=== PATIENT | male | born 1935 | race African-American/Black ===

== ENCOUNTER 2021-04-01 01:53 | Inpatient (IN) | payer MEDICARE, BC ==
[2021-04-01 02:51] LABS: Base Excess (BEa) 3.5 mEq/L (-2.0 to +3.0); CO2 Tension 36.6 mmHg (35.0-45.0); Calcium, Ionized (arterial) 1.14 mmol/L (1.12-1.30); Carboxyhemoglobin (COHb) 0.6 gm% (0.0-3.0); Hemoglobin (Hb) 11.7 g/dL (14.0-18.0); Potassium - ABG Lab 2.99 mmol/L (3.70-5.30); pH, Arterial 7.49 (7.35-7.45)
[2021-04-01 03:00] LABS: Puncture Site LRA
[2021-04-01] MEDS ORDERED: Mannitol 12.5 GM/50 ML IV PRN (04:43)
[2021-04-01] MEDS ORDERED: Ondansetron PF 4 MG/2 ML Vial IVP PRN (04:43)
[2021-04-01] MEDS ORDERED: Ventilator Sedation Protocol 1 EACH FS SCH (04:45)
[2021-04-01] MEDS ORDERED: manNITOL 20% 250 ML IVPB PRN (04:55)
[2021-04-01] MEDS ORDERED: Morphine 2 MG/ML VIAL SLOW IVP PRN (05:00)
[2021-04-01] MEDS ORDERED: Fentanyl CADD 100 ML IV SCH (05:00)
[2021-04-01] MEDS ORDERED: Fentanyl BOLUS 250 ML IVPB PRN (05:00)
[2021-04-01] MEDS ORDERED: Propofol 1,000 MG/100 ML VIAL IV PRN (05:00)
[2021-04-01] MEDS ORDERED: Propofol BOLUS 1,000 MG/100 ML VIAL IV PRN (05:00)
[2021-04-01] MEDS ORDERED: DISCONTINUE PREVIOUS NARCOTIC PAIN MEDICATIONS AND BENZODIAZEPINES FS SCH (05:00)
[2021-04-01] MEDS ORDERED: Lorazepam 2 MG/ML VIAL SLOW IVP PRN (05:00)
[2021-04-01] MEDS: niCARdipine 25 MG in Sodium Chloride 0.9% 250 ML 240 ML IVPB PRN (06:12)
[2021-04-01 07:24] LABS: Anion Gap 20 mmol/L (10-20); BUN (Urea Nitrogen) 18 mg/dL (8.4-25.7); Calc. Creatinine Clearance 9 mL/min (70-130); Calcium 9.6 mg/dL (7.8-10.44); Carbon Dioxide 23 mmol/L (23-31); Chloride 99 mmol/L (98-107); Glucose 135 mg/dL (83-110); Potassium 3.4 mmol/L (3.5-5.1); Sodium 139 mmol/L (136-145)
[2021-04-01 07:37] LABS: #Eosinphils 0.1 thou/uL (0.0-0.7); #Lymphocytes 0.9 thou/uL (1.20-3.40); #Monocytes 1.1 thou/uL (0.11-0.59); #Neutrophils 6.4 thou/uL (1.40-6.50); %Basophils 0.5 % (0.0-1.0); %Eosinophils 0.7 % (0.0-10.0); %Lymphocytes 10.1 % (21.0-51.0); %Monocytes 12.9 % (0.0-10.0); %Neutrophils 75.8 % (42.0-75.0); Anisocytosis SLIGHT = 6-15 cells (100X) (0-5/hpf); Elliptocytes SLIGHT = 2-5 cells (100X) (0-1/hpf); Hemoglobin 11.3 g/dL (14.0-18.0); MDiff Complete? YES; Macrocytosis SLIGHT = 6-15 cells (100X) (0-5/hpf); Mean Corpuscular HGB CONC 33.4 g/dL (32.0-36.0); Mean Corpuscular Hemoglobin 34.5 pg (27.0-31.0); Mean Platelet Volume 9.3 fL (7.4-10.4); Platelet Count 53 thou/uL (130-400); Platelet Morphology Comment Appears Decreased; Poikilocytosis SLIGHT = 6-15 cells (100X) (0-5/hpf); RBC Distribution Width 14.2 % (11.5-14.5); Red Blood Cell (RBC) Count 3.28 mill/uL (4.70-6.10); White Blood Cell (WBC) Count 8.5 thou/uL (4.8-10.8)
[2021-04-01 07:46] LABS: INR-International Normal Ratio 1.1; PTT 34.1 sec (22.9-36.1); Prothrombin Time 14.7 sec (12.0-14.7)
[2021-04-01] MEDS ORDERED: Famotidine/PF 20 mg/2ml Vial SLOW IVP SCH (09:00)
[2021-04-01] MEDS: Dextrose 5% in Water 1,000 ML IV SCH (10:46)
[2021-04-02] MEDS: niCARdipine 25 MG in Sodium Chloride 0.9% 250 ML 240 ML IVPB PRN (00:55)
[2021-04-02 03:49] LABS: #Lymphocytes 0.9 thou/uL (1.20-3.40); #Monocytes 1.2 thou/uL (0.11-0.59); #Neutrophils 9.5 thou/uL (1.40-6.50); %Basophils 0.1 % (0.0-1.0); %Lymphocytes 7.7 % (21.0-51.0); %Monocytes 10.5 % (0.0-10.0); %Neutrophils 81.7 % (42.0-75.0); Hemoglobin 10.5 g/dL (14.0-18.0); Mean Corpuscular HGB CONC 33.1 g/dL (32.0-36.0); Mean Corpuscular Hemoglobin 33.9 pg (27.0-31.0); Mean Platelet Volume 8.3 fL (7.4-10.4); Platelet Count 89 thou/uL (130-400); RBC Distribution Width 14.1 % (11.5-14.5); Red Blood Cell (RBC) Count 3.11 mill/uL (4.70-6.10); White Blood Cell (WBC) Count 11.6 thou/uL (4.8-10.8)
[2021-04-02 04:12] LABS: Anion Gap 15 mmol/L (10-20); BUN (Urea Nitrogen) 29 mg/dL (8.4-25.7); Calc. Creatinine Clearance 6 mL/min (70-130); Calcium 9.9 mg/dL (7.8-10.44); Carbon Dioxide 28 mmol/L (23-31); Chloride 100 mmol/L (98-107); Glucose 120 mg/dL (83-110); Potassium 3.9 mmol/L (3.5-5.1); Sodium 139 mmol/L (136-145)
[2021-04-02] MEDS: Famotidine/PF 20 mg/2ml Vial SLOW IVP SCH (10:10)
[2021-04-02] MEDS: Dextrose 5% in Water 1,000 ML IV SCH (10:10)
[2021-04-02] MEDS ORDERED: Pancrelipase DR 12,000 1 CAP FS PRN (11:15)
[2021-04-02] MEDS ORDERED: Sodium Bicarbonate Tab 325 MG TAB PER TUBE PRN (11:15)
[2021-04-03] MEDS: Dextrose 5% in Water 1,000 ML IV SCH ×2 (10:57→18:32)
[2021-04-03] MEDS: Famotidine/PF 20 mg/2ml Vial SLOW IVP SCH (11:01)
[2021-04-04] MEDS: Famotidine/PF 20 mg/2ml Vial SLOW IVP SCH (09:00)
[2021-04-04] MEDS: Dextrose 5% in Water 1,000 ML IV SCH (13:00)
[2021-04-05 05:16] VITALS: BMI 17.6
[2021-04-05] MEDS: Famotidine/PF 20 mg/2ml Vial SLOW IVP SCH (09:12)
[2021-04-05] MEDS: Dextrose 5% in Water 1,000 ML IV SCH (09:12)
[2021-04-05] MEDS ORDERED: Morphine 4 MG/ML VIAL SLOW IVP PRN ×2 (10:48)
[2021-04-05] MEDS ORDERED: Hyoscyamine Sulfate SL 0.125 mg Tablet SL PRN (10:49)
[2021-04-05] MEDS ORDERED: Lorazepam 2 MG/ML VIAL SLOW IVP PRN ×2 (10:49)
[2021-04-05] MEDS ORDERED: Scopolamine 1.5 mg/72 hour Patch TOP PRN (18:46)
[2021-04-06 08:55] VITALS: BP 139/67; TEMP 98.1
== END 2021-04-06 15:17 | disposition hospice, inpatient (51) | DRG 64 ==
LOC: CCU 01:53 → ONC 04-05 14:44
PROVIDERS: ADMIT Internal Medicine; ATTEND Emergency Medicine
PROC: 5A1955Z Respiratory Ventilation, Greater than 96 Consecutive Hours (ICD-10-PCS; principal; 2021-04-01)
DX: I61.5 Nontraumatic intracerebral hemorrhage, intraventricular (principal); J96.01 Acute respiratory failure with hypoxia; N18.6 End stage renal disease; G93.5 Compression of brain; G93.6 Cerebral edema; I12.0 Hypertensive chronic kidney disease with stage 5 chronic kidney disease or end stage renal disease; G91.1 Obstructive hydrocephalus; Z51.5 Encounter for palliative care; Z66 Do not resuscitate; I48.0 Paroxysmal atrial fibrillation; I61.1 Nontraumatic intracerebral hemorrhage in hemisphere, cortical; Z79.01 Long term (current) use of anticoagulants; Z88.0 Allergy status to penicillin; Z79.899 Other long term (current) drug therapy; Z95.0 Presence of cardiac pacemaker; Z99.2 Dependence on renal dialysis; Z95.5 Presence of coronary angioplasty implant and graft; I25.10 Atherosclerotic heart disease of native coronary artery without angina pectoris; Z79.02 Long term (current) use of antithrombotics/antiplatelets
CPT/HCPCS: 31500; 36415; 36416; 36600; 70450; 71045; 80048; 80053; 82805; 83690; 83880; 85025; 85610; 85730; 93005; 93010; 94002; 94003; 94760; 96365; 96367; C9132; J2060; J2270; J7050; S0028

== ENCOUNTER 2021-04-06 15:20 | Inpatient (IN) | payer OTHER ==
[2021-04-06 15:53] VITALS: BMI 17.3
[2021-04-06] MEDS ORDERED: Morphine 4 MG/ML VIAL SLOW IVP PRN (16:09)
[2021-04-06] MEDS: Morphine 4 MG/ML VIAL SLOW IVP SCH ×2 (16:31→22:15)
[2021-04-06] MEDS ORDERED: Scopolamine 1.5 mg/72 hour Patch TOP SCH (17:00)
[2021-04-06] MEDS: Lorazepam 2 MG/ML VIAL SLOW IVP SCH ×2 (17:57→22:16)
[2021-04-06 20:19] VITALS: BP 99/54; TEMP 98.8
[2021-04-07] MEDS: Lorazepam 2 MG/ML VIAL SLOW IVP SCH (01:19)
[2021-04-07] MEDS: Morphine 4 MG/ML VIAL SLOW IVP SCH (01:19)
== END 2021-04-07 01:45 | disposition expired | DRG 951 ==
LOC: ONC 15:20
PROVIDERS: ADMIT Family Medicine; ATTEND Family Medicine
DX: Z51.5 Encounter for palliative care (principal); I61.1 Nontraumatic intracerebral hemorrhage in hemisphere, cortical; I61.5 Nontraumatic intracerebral hemorrhage, intraventricular; N18.6 End stage renal disease; Z66 Do not resuscitate; J96.01 Acute respiratory failure with hypoxia; I12.0 Hypertensive chronic kidney disease with stage 5 chronic kidney disease or end stage renal disease; I48.0 Paroxysmal atrial fibrillation; Z99.2 Dependence on renal dialysis; Z95.0 Presence of cardiac pacemaker; Z79.01 Long term (current) use of anticoagulants; Z88.0 Allergy status to penicillin
CPT/HCPCS: J2060; J2270